=== PATIENT | female | born 1945 | race Caucasian/White ===

== ENCOUNTER 2016-09-09 11:40 | Emergency (ER) | payer MEDICARE ==
[~2016-09-09 11:40] MED LIST: ASPIRIN EC81 MG PO; LOVAZA1 GM PO; ZYRTEC10 MG PO
== END 2016-09-09 13:28 | disposition home or self-care (01) ==
LOC: FER 11:40
DX: M25.562 Pain in left knee (principal); I10 Essential (primary) hypertension; J45.909 Unspecified asthma, uncomplicated; Z88.0 Allergy status to penicillin; Z88.5 Allergy status to narcotic agent; Z98.890 Other specified postprocedural states
CPT/HCPCS: 73564; 99283

== ENCOUNTER 2020-10-29 10:32 | Emergency (ER) | payer MEDICARE ==
[~2020-10-29 10:32] MED LIST changes: +IBUPROFEN800 MG PO; +M.V.I. ADULT VIA5 ML PO; +MEDROL 4MG DOSEP4 MG PO; +NAPROXEN500 MG PO; +VENTOLIN HFA IN18 GM INH; +ZESTRIL5 MG PO
[2020-10-29 11:28] LABS: BASOPHIL 0.7 % (0-2); EOSINOPHIL 4.9 % (0-7); HCT 44.5 % (37.0-47.0); HGB 14.9 g/dl (12.5-16.0); LYMPHOCYTE 31.3 % (15-48); MCH 30.2 pg (25.0-31.0); MCHC 33.5 g/dL (32.0-36.0); MCV 90.3 fL (78.0-100.0); MONOCYTE 8.9 % (0-12); MPV 9.1 fL (6.0-9.5); NRBC 0; PLT 316 K/uL (150-400); RBC 4.93 M/uL (4.20-5.40); RDW 13.6 % (11.5-14.0); WBC 5.5 K/uL (4.0-10.5)
[2020-10-29 11:36] LABS: INR 0.97 (0.9-1.2); PROTHROMBIN TIME 12.2 SECONDS (11.4-13.6)
[2020-10-29 11:37] LABS: D-DIMER 0.46 ug/mLFEU (0.00-0.41)
[2020-10-29 11:50] LABS: ALBUMIN 3.8 g/dL (3.4-5.0); BILIRUBIN - TOTAL 0.5 mg/dL (0.2-1.0); BUN/CREAT RATIO (CALC) 18.2 RATIO; CREATININE 0.77 mg/dL (0.51-0.95); GLOBULIN (CALCULATION) 3.4 g/dL; POTASSIUM 5.4 mmol/L (3.5-5.1); TOTAL PROTEIN 7.2 g/dL (6.4-8.2)
[2020-10-29 14:16] LABS: BUN/CREAT RATIO (CALC) 18.5 RATIO; CREATININE 0.65 mg/dL (0.51-0.95); POTASSIUM 4.3 mmol/L (3.5-5.1)
== END 2020-10-29 15:05 | disposition home or self-care (01) ==
LOC: FER 10:32
PROVIDERS: Emergency Medicine
DX: R07.89 Other chest pain (principal); I10 Essential (primary) hypertension; J45.909 Unspecified asthma, uncomplicated; Z88.0 Allergy status to penicillin; Z88.5 Allergy status to narcotic agent
CPT/HCPCS: 36415; 71045; 80048; 80053; 84484; 85025; 85379; 85610; 85730; 93005